=== PATIENT | female | born 1965 | race Two or more races ===

== ENCOUNTER 2016-09-29 12:50 | Observation (INO) | payer BC, MEDICARE ==
[~2016-09-29] VITALS: Ht 162.6 cm; Wt 79.4 kg
--- NOTE | ~2016-09-29 | CON ---
[facility] AGE: 51 Y [address] ROOM: [address] [place], [place] [address] LOCATION: [facility] [place] ADMIT DATE: 09/29/2016 Consultation DISCHARGE DATE: FAMILY PHYSICIAN: Sky Hannah MD ATTENDING PHYSICIAN: PATRICK ANDINO DATE OF CONSULTATION: 09/29/2016 REFERRING PHYSICIAN: Tarun Kauffman MD CHIEF COMPLAINT: Medical management in the setting of AV fistula revision. HISTORY OF PRESENTING ILLNESS: This 51-year-old female with a history of end-stage renal disease on hemodialysis was admitted to [facility] earlier today by Dr. Andino for planned AV fistula revision. She had apparently incurred a blood blister associated with access during dialysis. There was a concern for cutaneous fistulization and it was recommended that she undergo operative revision. The procedure was performed today without any significant complications. Postoperatively, she complains of nausea. She is having a moderate amount of pain, but relates that it is "controlled." She has been tachycardic in the postoperative area, but denies palpitations or racing heartbeat and denies significant shortness of breath. She denies headaches, denies chest pain, no abdominal pain or any associated physical or constitutional complaints. ALLERGIES: SULFA, AMOXICILLIN. ILLNESSES: 1. End-stage renal disease, on hemodialysis. 2. Essential hypertension. 3. Gastroesophageal reflux disease. 4. Asthma, mild intermittent. 5. Depression. CURRENT MEDICATIONS: 1. Acetaminophen a 1000 mg p.o. q.6 h. p.r.n. 2. Alprazolam 1 mg p.o. q.h.s. 3. Cinacalcet 60 mg p.o. q.h.s. 4. Benadryl 25 mg p.o. b.i.d. p.r.n. 5. Omeprazole 40 mg p.o. daily. 6. Renvela 800 mg 3 tabs p.o. t.i.d. 7. Vitamin B complex daily. [facility] AGE: 51 Y [address] ROOM: [address] [place], [place] [address] LOCATION: [facility] [place] ADMIT DATE: 09/29/2016 Consultation DISCHARGE DATE: FAMILY PHYSICIAN: Sky Hannah MD ATTENDING PHYSICIAN: PATRICK ANDINO. Vitamin E 400 units p.o. daily. FAMILY HISTORY: Negative for cancer, diabetes, or heart disease. SOCIAL HISTORY: She is and lives in [place]. She is currently unemployed. There is no significant history of tobacco or alcohol use. No illicit drug use. REVIEW OF SYSTEMS: As per HPI. All other organ systems reviewed and are negative. OBJECTIVE: VITAL SIGNS: Temperature 97.6, pulse 134, respirations 20, blood pressure 118/76, and O2 sat 96% on room air. GENERAL: She is anxious, but cooperative, lying in the bed, in mild distress, secondary to right-sided arm pain and nausea. SKIN: Supple, brown, warm, dry. No rashes. Wound overlying the right arm is clean and intact. HEENT: Otherwise, normocephalic. Sclerae nonicteric. Pupils equal, round, and reactive to light and accommodation. Extraocular movements appear intact. Nasal turbinates normal in appearance. Oropharynx clear. Mucous membranes are pink and moist. Dentition appears intact. NECK: Supple. Plethoric. No masses or adenopathy. No thyromegaly. No JVD. CHEST: Chest wall is symmetrical. HEART: Tachycardic, but regular. LUNGS: Diminished bilaterally. No wheezes or crackles heard. ABDOMEN: Soft, diffusely tender, but no guarding or rebound. No masses or hepatosplenomegaly. AND RECTAL: Not done. EXTREMITIES: Display trace pitting edema. No cyanosis. NEUROLOGICAL: Anxious, but no focal deficits. LABORATORY AND X-RAY DATA: CBC showed a white blood cell count 6.2, hemoglobin is 13.4, hematocrit 39.3, and platelets 254. Chemistries revealed BUN and creatinine 20 and 5.1 respectively, sodium and potassium 134 and 4.3, chloride and CO2 are 95 and 31, calcium is 9.3, and glucose 93. ASSESSMENT AND PLAN: 1. Essential hypertension, adequately controlled. We will continue her home medication regimen and monitor. We will make adjustments if necessary. 2. Sinus tachycardia, physiologic, I suspect this is related to pain control and nausea. She is hemodynamically stable. We will follow clinically and expect resolution over the upcoming hours. If it is persistent, we PATIENT'S NAME: STEWART NICO, [facility] AGE: 51 Y [address] ROOM: [address] [address] LOCATION: [facility] [place] ADMIT DATE: 09/29/2016 Consultation DISCHARGE DATE: FAMILY PHYSICIAN: Sky Hannah MD ATTENDING PHYSICIAN: PATRICK ANDINO will consider careful beta-miles therapy. 3. End-stage renal disease, on hemodialysis. Plan did maintain regular dialysis regimen. Dr. Vargas has already evaluated her. We will watch her fluid volume balance and daily weights. 4. Asthma, mild intermittent. Currently, asymptomatic and stable. No changes for now and monitor. 5. Deep venous thrombosis prophylaxis. Follow the venous thromboembolism protocol. MD YUE GAMING/jenifer /[id number] d: 09/30/16 0004 t: 09/30/16 0920, CONSULTATION REPORT
--- NOTE | ~2016-09-29 | CON ---
PATIENT'S NAME: TERRY WALSH [facility] AGE: 51 Y [address] ROOM: [place] [address] [place] [facility] [place] DATE: 09/29/2016 Consultation DISCHARGE DATE: 09/30/2016 FAMILY PHYSICIAN: Sky Hannah MD ATTENDING PHYSICIAN: Gaetano Andino DATE OF CONSULTATION: 09/29/2016 REFERRING PHYSICIAN: Tarun Kauffman MD REQUESTING PHYSICIAN: Gaetano Andino M.D. REASON FOR CONSULTATION: End-stage renal failure. HISTORY OF PRESENT ILLNESS: The patient is a 51-year-old female with end-stage renal failure and she is currently on hemodialysis on Tuesdays, , and Saturdays. The patient had upper arm AV fistula. Recently, we have been having problems with accessing the fistula. The patient was admitted to the hospital by Dr. Andino for revision of the fistula. I have been asked to see her because she is end- stage renal failure patient. ALLERGIES: ALLERGIC TO SULFA AND AMOXICILLIN. MEDICATIONS: 1. Acetaminophen p.r.n. 2. Alprazolam 1 mg q.h.s. 3. Cinacalcet 60 mg q.h.s. 4. Benadryl 25 mg twice a day p.r.n. 5. Omeprazole 40 mg a day. 6. Renvela 800 mg 3 tablets 3 times a day with food. 7. Vitamin B complex every day. REVIEW OF SYSTEMS: GENERAL: The patient was seen postoperatively. She is quite drowsy. HEENT: Denies any sore throat or sinus congestion. CARDIOVASCULAR: Denies chest pain or dyspnea on exertion. RESPIRATORY: Denies any cough or sputum production. GI: Denies any abdominal pain, nausea, or vomiting. : Denies any dysuria. MUSCULOSKELETAL: Pain in the right arm. SKIN: Denies any rash or pruritus. Denies any allergies or hay fever. LYMPHATIC/HEMATOLOGIC: Denies any lymph node enlargement or easy bruising. PATIENT'S NAME: TERRY WALSH [facility] AGE: 51 Y [address] ROOM: [place] [address] [place]: [facility] [place] ADMIT DATE: 09/29/2016 Consultation DISCHARGE DATE: 09/30/2016 FAMILY PHYSICIAN: Sky Hannah MD ATTENDING PHYSICIAN: Gaetano Andino PAST MEDICAL HISTORY: End-stage renal failure, on hemodialysis; essential hypertension; gastroesophageal reflux disorder; bronchial asthma, and depressive illness. PAST SURGICAL HISTORY: Fistula revision of the right upper arm. FAMILY HISTORY: Negative for heart disease, cancer, diabetes, or chronic kidney disease. SOCIAL HISTORY: The patient lives in [place], [place], with her . No history of tobacco or alcohol. PHYSICAL EXAMINATION: GENERAL APPEARANCE: This is a 51-year-old female lying in the hospital bed, in no acute distress. VITAL SIGNS: Temperature 97.3, pulse 73, and systolic blood pressure . HEAD: Normocephalic. EENT: Pupils are round and equal. Normal eyelids and conjunctivae. Oral cavity clear. Dry mucosa. NECK: Trachea is central. No thyromegaly. Unable to evaluate jugular venous pulsation. CARDIAC: Heart sounds are audible in all the areas. No gallop or murmur. Pulses the patient has right upper arm AV fistula with positive thrill. ABDOMEN: Soft and nontender. Cannot palpate any liver or spleen. LUNGS: Bilaterally clear to auscultation. EXTREMITIES: She has no clubbing or cyanosis. SKIN: No sign of vasculitis. LYMPHATICS: Did not examine lymphatics. LABORATORY DATA: WBC 7.5, hemoglobin 11.2, hematocrit 33.1, and platelet count 221. Glucose of 105, BUN of 34, creatinine of 7.5, sodium 135, potassium 5.1, chloride 107, bicarb 30, calcium 8.0, albumin of 3.4, and phosphorus of 4.5. ASSESSMENT: 1. End-stage renal failure, the patient on hemodialysis. 2. Hypertension. 3. Gastroesophageal reflux disease. 4. . 5. Depression. PATIENT'S NAME: TERRY WALSH [facility] AGE: 51 Y [address] ROOM: [address] [address] LOC[place]: [facility] [place] ADMIT DATE: 09/29/2016 Consultation DISCHARGE DATE: 09/30/2016 FAMILY PHYSICIAN: Sky Hannah MD ATTENDING PHYSICIAN: Gaetano Andino 6. Recent revision of the right upper arm arteriovenous fistula. PLAN: Her electrolytes are all within normal limits. We will give her pain medicine for pain management. The patient is due for her next dialysis treatment on Monday next. I would like to thank Dr. Andino for allowing me to participate in this patient's care. M MD FABI MEANS/jenifer /[id number] d: 09/30/162028 t: 10/06/16 1640, CONSULTATION REPORT
--- NOTE | ~2016-09-29 | OR ---
PATIENT'S NAME: TERRY WALSH [facility] AGE: 51 Y [address] 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 PROCEDURE: 1. Fistula revision. 2. Resection of ulcer and aneurysm sac. 3. Repair of fistula with aneurysmorrhaphy. FAST FOOD SHIFT SUPERVISOR: LAZARO Willingham. ANESTHESIA: General. ESTIMATED BLOOD LOSS: 30 mL. OPERATIVE FINDINGS: Ulcer attached to aneurysm of right arm fistula resected and repaired with normal flow return to the fistula. DESCRIPTION OF PROCEDURE: The patient was brought to the operating room, placed supine on the operating room table, placed under general anesthesia, prepped and draped in a sterile manner. Preoperative time-out was performed. The patient received preoperative antibiotics in the form of 900 mg of clindamycin. We made an incision in a vertical manner proximal to the region of ulceration, and then we made an incision distal to it. We dissected it down to the fascia, incised the fascia, dissected out the cephalic vein fistula in a 360-degree fashion both proximally and distally. Once this was clear, we gave 5000 units of heparin. We then clamped proximally and distally where we had dissected out the cephalic vein. We then resected the ulcer along with the top of the aneurysm sac in an elliptical manner. Once this was completed, we then repaired the remaining aneurysm sac; however, it was still extremely large, so we resected more of the sac and then reapproximated the edges with a running 6-0 Prolene suture. We removed the clamps. There was excellent flow into the fistula. There was no leak from the suture line. We reversed the heparin with protamine. We then reapproximated the skin with interrupted 4-0 nylon vertical mattress sutures. The patient tolerated the procedure well, transferred to the recovery room and then back to the floor. PATIENT'S NAME: TERRY WALSH [facility] AGE: 51 Y [address] ROOM: [address] [address] [place] [facility] [place]: 09/29/2016 OR/Procedure Report DISCHARGE DATE: FAMILY PHYSICIAN: Sky Hannah MD ATTENDING PHYSICIAN: GAETANO ANDINO GAETANO ANDINO MD FKM/modl /[id number] d: 09/29/16 2323 t: 09/30/16 1229, OPERATIVE SUMMARY
[~2016-09-29 12:50] MED LIST: BENADRYL25 MG PO; COREG25 MG PO; COREG6.25 MG PO; HYDRALAZINE HCL50 MG PO; KLONOPIN2 MG PO; LASIX20 MG PO; LASIX80 M1 PO; MILK OF MA400 MG/5 M PO; MYLANTA (MAG-AL30 ML PO; NORVASC5 MG PO; PAIN RELIEF650 MG PO; PRILOSEC10 MG PO; RENA-VITE RX T1 EACH PO; RENVELA800 MG PO; SPIRONOLACTONE25 MG PO; SYMBICORT 16010.2 GM INH; VITAMIN E400 UNI1 PO; XANAX0.5 MG PO; XANAX1 MG PO
[2016-09-29] MEDS ORDERED: SENSIPAR60 MG PO (13:20)
[2016-09-29] MEDS ORDERED: PRILOSEC20 MG PO (13:21)
[2016-09-29] MEDS ORDERED: ALLERGY25 M1 PO (13:22)
[2016-09-29] MEDS ORDERED: TYLENOL EXTRA500 MG PO (13:22)
[2016-09-29 14:37] LABS: BASOPHIL # 0.1 K/uL (0.0-0.2); EOSINOPHIL # 0.4 K/uL (0.0-0.5); EOSINOPHIL % 5.7 %; HEMATOCRIT 39.3 % (33.0-46.0); HEMOGLOBIN 13.4 g/dL (10.0-15.0); IMMATURE GRANULOCYTE % 0.2 %; LYMPHOCYTE # 1.6 K/uL (0.8-4.0); LYMPHOCYTE % 26.5 %; MCH 32.4 pg (27.0-34.0); MCHC 34.1 gm/dL (32.0-36.5); MCV 95.2 fl (83.0-98.0); MONOCYTE # 0.4 K/uL (0.0-1.0); MONOCYTE % 6.9 %; NEUTROPHIL # (ANC) 3.7 K/uL (1.8-7.8); NEUTROPHIL % 59.7 %; NRBC % 0 /100WBC (0-0.00); PLATELET COUNT 254 K/uL (150-450); RBC 4.13 M/uL (3.50-5.50); RDW-CV 12.9 % (11.9-14.6); WBC 6.2 K/uL (4.0-11.0)
[2016-09-29 14:45] LABS: CALCIUM 9.3 mg/dL (8.5-10.5)
[2016-09-29 14:52] LABS: ANION GAP 12.3 (10.0-19.0); CREATININE 5.1 mg/dL (0.5-1.1); POTASSIUM 4.3 mMol/L (3.7-5.1)
--- NOTE | 2016-09-29 16:17 | NUR ---
Patient is 51 year old female who is admitted for a [facility] abcess. A/Ox3. Bulgarian speaking only. Language line placed in the room. Allergies noted and bracelet placed. Limb alert bracelet applied. Hx of HTN, consitpation, kidney disease- on dialysis- sees Dr. Franklin, arthritis, bronchitis. Weight and height obtained. VTE score is a 3. Stated she started having troubles with her fistula yesterday so went to the clinic this morning. NPO. Cooperative with cares.
--- NOTE | 2016-09-30 05:16 | NUR ---
Significant Event: PAITENT IS ALERT AND ORIENTATED. AMBULATES WITH ONE ASSIST GB STANDBY. IV TO L FA. LIMB ALET TO RIGHT ARM DUE TO FISTULA. PATIENT HAS DIALYSIS WITH LITTLE URINE OUTPUT. HX OF HTN AND ANXIETY. VSS HAD SOME HYPOTENTION THIS SHIFT. DIET ADVANCE TOLERATED REG FOR BKFST. DAUGHTER IN ROOM WITH PATIENT. BOTH SPEAK CHADIAN BUT HAVE SOME UNDERSTANDING OF SYRIAN. Follow up: MONITOR FOR CHEST PAIN, BLEEDING, AND IRREGULAR HEART RATE.
[2016-09-30 06:04] LABS: BASOPHIL % 0.4 %; EOSINOPHIL # 0.1 K/uL (0.0-0.5); EOSINOPHIL % 1.3 %; HEMATOCRIT 33.1 % (33.0-46.0); HEMOGLOBIN 11.2 g/dL (10.0-15.0); IMMATURE GRANULOCYTE % 0.3 %; LYMPHOCYTE # 1.3 K/uL (0.8-4.0); LYMPHOCYTE % 17.6 %; MCH 32.7 pg (27.0-34.0); MCHC 33.8 gm/dL (32.0-36.5); MCV 96.5 fl (83.0-98.0); MONOCYTE # 0.6 K/uL (0.0-1.0); MONOCYTE % 8.4 %; MPV 8.9 fl (9.4-12.4); NEUTROPHIL # (ANC) 5.4 K/uL (1.8-7.8); NRBC % 0 /100WBC (0-0.00); PLATELET COUNT 221 K/uL (150-450); RBC 3.43 M/uL (3.50-5.50); RDW-CV 12.7 % (11.9-14.6); WBC 7.5 K/uL (4.0-11.0)
[2016-09-30 06:18] LABS: ALBUMIN 3.4 gm/dL (3.5-5.0); ANION GAP 13.1 (10.0-19.0); PHOSPHORUS 4.5 mg/dL (2.5-4.9); POTASSIUM 5.1 mMol/L (3.7-5.1)
[2016-09-30 06:19] LABS: CREATININE 7.5 mg/dL (0.5-1.1)
[2016-09-30] MEDS ORDERED: NORCO 5-325 TA1 EACH PO (12:52)
--- NOTE | 2016-09-30 15:33 | NUR ---
Met with patient, , and daughter at bedside today. Introduced myself and the role of the CM department. Patient has dialysis at [facility] on [address]. If she discharges today, which is a possibility she will resume her dialysis there tomorrow. Patient and family deny any needs and state the plan is to discharge to home.
--- NOTE | 2016-09-30 16:29 | NUR ---
Significant Event: PT A&O x3. VSS. Dressing changed to R)arm. Pain well controlled with norco 1 tab last at 1220. PT up ad kinza in room. Tolerating diet. IV dc'd. Dismissal instructions/prescriptions discussed with PT and spouse, voiced understanding. PT wheeled to lobby by SCHOOL PSYCHOLOGY PROFESSOR. Follow up:
--- NOTE | 2016-09-30 17:40 | NUR ---
DISCHARGE: Pt. was explained discharge instructions, fistula care, and educated on new medication: norco. Krissy, interpreter and translator, was present. No questions or concerns, patient and verbalized understanding of teaching. IV removed by primary nurse. Called provider, [place] and patient can shower with fistula uncovered and will keep dressing on for 1 week then ok to remove. Patient was taken to front door by aide and driven home by .
[2016-11-18] MEDS ORDERED: RENVELA800 MG PO (12:33)
== END 2016-09-30 16:40 | disposition disaster alternative care site (69) ==
LOC: GMSU 12:50 → EDSTATUS 13:00 → GMSU 09-30 16:40
PROVIDERS: Family Medicine; ADMIT Surgery Vascular Surgery
PROC: 05LD0ZZ Occlusion of Right Cephalic Vein, Open Approach (ICD-10-PCS; principal; 2016-09-29)
DX: T82.898A Other specified complication of vascular prosthetic devices, implants and grafts, initial encounter (principal); I12.0 Hypertensive chronic kidney disease with stage 5 chronic kidney disease or end stage renal disease; N18.6 End stage renal disease; Z23 Encounter for immunization; M19.90 Unspecified osteoarthritis, unspecified site; J45.20 Mild intermittent asthma, uncomplicated; K21.9 Gastro-esophageal reflux disease without esophagitis; F32.9 Major depressive disorder, single episode, unspecified; Z90.710 Acquired absence of both cervix and uterus; Z88.1 Allergy status to other antibiotic agents; Z88.2 Allergy status to sulfonamides; Z79.899 Other long term (current) drug therapy; Y83.8 Other surgical procedures as the cause of abnormal reaction of the patient, or of later complication, without mention of misadventure at the time of the procedure; Z98.890 Other specified postprocedural states
CPT/HCPCS: G0009; G0378; J0690; J1100; J1644; J2250; J2405; J2550; J2720; J3010; J7030; J7050

== ENCOUNTER → 2016-10-03 | Outpatient (CLI) | payer BC, MEDICARE ==
[~2016-10-03] MED LIST changes: +ALLERGY25 M1 PO; +NORCO 5-325 TA1 EACH PO; +PRILOSEC20 MG PO; +SENSIPAR60 MG PO; +TYLENOL EXTRA500 MG PO
== END | disposition disaster alternative care site (69) ==
LOC: LGSMG 06:50
DX: T82.590A Other mechanical complication of surgically created arteriovenous fistula, initial encounter (principal)

== ENCOUNTER → 2016-10-03 | Outpatient (CLI) | payer BC, MEDICARE | END | disposition disaster alternative care site (69) | LOC: GOPD 10:00 | PROC: 05HN33Z Insertion of Infusion Device into Left Internal Jugular Vein, Percutaneous Approach (ICD-10-PCS; principal; 2016-10-03) | PROC: B514YZA Fluoroscopy of Left Jugular Veins using Other Contrast, Guidance (ICD-10-PCS; 2016-10-03) | PROC: B544ZZA Ultrasonography of Left Jugular Veins, Guidance (ICD-10-PCS; 2016-10-03) | DX: T82.590A Other mechanical complication of surgically created arteriovenous fistula, initial encounter (principal); Z99.2 Dependence on renal dialysis | CPT/HCPCS: C1750; J1644; J2250; J3010; J7030 ==

== ENCOUNTER 2016-11-23 05:52 | Outpatient (CLI) | payer BC, MEDICARE ==
[~2016-11-23] VITALS: Ht 162.6 cm; Wt 79.3 kg
--- NOTE | ~2016-11-23 | OR ---
PATIENT'S NAME: TERRY WALSH [facility] AGE: 51 Y [address] ROOM: [place] [address] LOCATION: [facility] ADMIT DATE: 11/23/2016 OR/Procedure Report DISCHARGE DATE: 11/23/2016 FAMILY PHYSICIAN: Sky Hannah MD ATTENDING PHYSICIAN: Gaetano Andino SURGEON: Gaetano Andino MD TERRITORY SALES MANAGER MEDICAL: DATE OF PROCEDURE: 11/23/2016 PREOPERATIVE DIAGNOSIS: Poorly performing fistula. POSTOPERATIVE DIAGNOSIS: Poorly performing fistula. PROCEDURE: Fistulogram, fistuloplasty. VEST BASTER: Nayeli Gallego MD. ANESTHESIA: MAC, local. ESTIMATED BLOOD LOSS: 5 mL. 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 DESCRIPTION OF PROCEDURE: We gained access to the right upper extremity fistula using ultrasound guidance, followed by micropuncture needle, followed by micropuncture wire. We used lidocaine locally at the skin for anesthesia. We exchanged using Seldinger for a 4-Turkmen short sheath. We then performed a series of fistulogram which showed outflow vein tract stenosis where the cephalic vein entered into the axillary vein. We exchanged using Seldinger for a 4-Turkmen sheath. We then crossed the lesion with a 3-way wire. We heparinized with 5000 units of heparin and balloon angioplastied it with an 8 x 40 Lemuel balloon to remove the stenosis. The sheath was removed. A single 4-0 nylon stitch was placed for hemostasis. The patient tolerated the procedure well and transferred to recovery room and home later that day. GAETANO ANDINO MD FKM/modl /[id number] d: 12/07/16 2305 t: 12/14/16 1543, OPERATIVE SUMMARY
[2016-11-23 06:29] LABS: BASOPHIL # 0.1 K/uL (0.0-0.2); BASOPHIL % 1.3 %; EOSINOPHIL # 0.5 K/uL (0.0-0.5); EOSINOPHIL % 8.7 %; HEMATOCRIT 35.7 % (33.0-46.0); HEMOGLOBIN 12.2 g/dL (10.0-15.0); IMMATURE GRANULOCYTE % 0.4 %; LYMPHOCYTE # 1.5 K/uL (0.8-4.0); LYMPHOCYTE % 26.6 %; MCHC 34.2 gm/dL (32.0-36.5); MCV 96.5 fl (83.0-98.0); MONOCYTE # 0.5 K/uL (0.0-1.0); MONOCYTE % 8.3 %; MPV 8.3 fl (9.4-12.4); NEUTROPHIL % 54.7 %; NRBC % 0 /100WBC (0-0.00); PLATELET COUNT 252 K/uL (150-450); RDW-CV 13.9 % (11.9-14.6); WBC 5.5 K/uL (4.0-11.0)
[2016-11-23 06:51] LABS: ALBUMIN 3.8 gm/dL (3.5-5.0); ANION GAP 11.9 (10.0-19.0); CALCIUM 8.9 mg/dL (8.5-10.5); POTASSIUM 4.9 mMol/L (3.7-5.1); TOTAL BILIRUBIN 0.5 mg/dL (0.0-1.5); TOTAL PROTEIN 7.8 g/dL (6.0-8.4)
[2016-11-23 06:53] LABS: CREATININE 8.3 mg/dL (0.5-1.1)
== END 2016-11-23 09:20 | disposition disaster alternative care site (69) ==
LOC: GCAT 05:52 → GPCU 05:52 → GPOC 06:00 → GCAT 09:20
PROVIDERS: Surgery Vascular Surgery
PROC: B51W1ZZ Fluoroscopy of Dialysis Shunt/Fistula using Low Osmolar Contrast (ICD-10-PCS; principal; 2016-11-23)
PROC: 05773ZZ Dilation of Right Axillary Vein, Percutaneous Approach (ICD-10-PCS; 2016-11-23)
DX: I87.1 Compression of vein (principal); T82.898A Other specified complication of vascular prosthetic devices, implants and grafts, initial encounter; N18.6 End stage renal disease; Z99.2 Dependence on renal dialysis
CPT/HCPCS: C1725; J0690; J1644; J2001; J2720; J3010; J7030

== ENCOUNTER → 2016-11-25 | Outpatient (CLI) | payer BC, MEDICARE | END | disposition disaster alternative care site (69) | LOC: GRAD 11:34 | PROC: 05PY33Z Removal of Infusion Device from Upper Vein, Percutaneous Approach (ICD-10-PCS; principal; 2016-11-25) | DX: Z49.01 Encounter for fitting and adjustment of extracorporeal dialysis catheter (principal); I77.0 Arteriovenous fistula, acquired ==

== ENCOUNTER → 2017-01-17 | Outpatient (CLI) | payer BC, MEDICARE | LOC: GRES 11:00 | DX: Z48.22 Encounter for aftercare following kidney transplant (principal); Z94.0 Kidney transplant status ==